=== PATIENT | male | born 1960 | race Caucasian/White ===

== ENCOUNTER 2020-01-16 17:01 | Inpatient (IN) | payer OTHER, SELFPAY ==
[2020-01-16] VITALS (15 sets, daily range): BP systolic 121–157; BP diastolic 77–96; PULSE 79–111; RESP 18–29; TEMP 36.2–36.6; O2SAT 61–97; BMI 53.7
--- NOTE | ~2020-01-16 | US_ITS ---
EXAMINATION: US venous doppler LE EXAM DATE: 01/17/2020 08:30 INDICATION: Bilateral leg edema. TECHNIQUE: Multiple grayscale, color flow and Doppler images of the lower extremity deep venous syste ms bilaterally were obtained and reviewed. There is no prior study for comparison. FINDINGS: Right side: The right common femoral, femoral and profunda veins demonstrate normal color flow, respi ratory variation, augmentation and compressibility. Compressibility, color flow confirmed within the right popliteal, posterior tibial, peroneal, and greater saphenous veins. Left side: The left common femoral, femoral and profunda veins demonstrate normal color flow, respira tory variation, augmentation and compressibility. Compressibility, color flow confirmed within the l eft popliteal, posterior tibial, peroneal, and greater saphenous veins. IMPRESSION: No lower extremity deep venous thrombosis bilaterally. Reviewed, dictated and finalized at location A. TRIC DISTRIBUTION CHECKER
--- NOTE | ~2020-01-16 | XR_ITS ---
EXAMINATION: XR chest 2V DATE: 01/16/2020 17:48 INDICATION: Shortness of breath and right-sided weakness. TECHNIQUE: frontal and lateral views of the chest were obtained. COMPARISON: Chest radiograph dated 12/23/2013 FINDINGS: Patchy airspace opacities in the bilateral mid and lower lung zones. No pleural effusion or pneumotho rax. Cardiomegaly. Moderate thoracic spondylosis. IMPRESSION: 1. Opacities in the bilateral mid and lower lung zones which could represent pulmonary edema or pneum onia. 2. Cardiomegaly. Reviewed, dictated and finalized at location H. GER OF PRODUCT IMPRESSION: 1. Opacities in the bilateral mid and lower lung zones which could represent pu lmonary edema or pneumonia. 2. Cardiomegaly.
--- NOTE | 2020-01-16 17:24 | PC.NURSE ---
EKG done at 1721, shown to JEN
[2020-01-16 17:37] LABS: Hematocrit 45.6 % (42.0-52.0); Hemoglobin 15.5 g/dL (14.0-18.0); Mean Corpuscular Hemoglobin 30.6 pg (26-34); Mean Corpuscular Volume 89.9 fl (80-100); Mean Platelet Volume 10.1 fl (7.4-10.4); Platelet Count Result 254 k/mm3 (150-375); Red Blood Count 5.07 M/mm3 (4.6-6.20); Red Cell Distribution Width 13.2 % (11.5-14.5)
[2020-01-16 17:47] LABS: Partial Thromboplastin Time 25.2 SECONDS (22.3-36.8)
[2020-01-16 17:49] LABS: Alanine Aminotransferase 44 U/L (4-50); Albumin Level 3.5 g/dL (3.5-5.1); Alkaline Phosphatase 107 U/L (38-126); Anion Gap 12 mmol/L (8-16); Aspartate Amino Transferase 67 U/L (17-59); Bilirubin,Total 0.8 mg/dL (0.2-1.3); Blood Urea Nitrogen 22 mg/dL (9-20); Calcium 8.9 mg/dL (8.4-10.2); Carbon Dioxide 33 mmol/L (22-30); Chloride 90 mmol/L (98-107); Estimated Glomerular Filt Rate > 60; Glucose 190 mg/dL (75-110); Potassium 3.9 mmol/L (3.4-5.0); Sodium 135 mmol/L (137-145)
[2020-01-16 17:57] LABS: NT Pro B Type Natriuretic Pept 2160 PG/ML (5-100)
[2020-01-16 17:58] LABS: Add Urine Microscopic? YES; Amorphous Sediment Urine Few; Appearance Urine Cloudy (Clear); Bacteria Urine Trace /hpf; Bilirubin Urine Negative (Negative); Blood Urine Negative (Negative); Color Urine Amber (Yellow); Glucose Urine UA Negative (Negative); Ketones Urine Negative (Negative); Leukocyte Esterase Ur Negative LEU/UL (Negative); Mucus Urine Few /lpf; Nitrate Urine Negative (Negative); Protein Urine 3+ mg/dL (Negative); Specific Grav Ur 1.029 (1.001-1.035); Squamous Epithelial Cell Urine Occasional /hpf (Few); WBC Urine 0-3 /hpf
[2020-01-16 18:10] LABS: Band Neutrophils Percent 5 % (0-6); Monocytes Percent Manual 6 % (3-9); Neutrophils Percent Manual 75 % (46-73); Platelet Estimate Adequate (Adequate); Total Cells Counted 100
--- NOTE | 2020-01-16 18:25 | ED.SOB ---
HPI - SOB/Dyspnea General Chief Complaint: Shortness of Breath/Dyspnea Stated Complaint: multiple complaints Time Seen by Provider: 01/16/20 17:12 History of Present Illness HPI Narrative: Patient is a 59-year-old male who presents ER with shortness of breath. Reports on 01/06/2020 he began to feel very short of breath. He cannot lay down flat without getting short of breath. He used to be able to ambulate 50 to 100 feet. Can no longer walk further than 10 feet. No runny nose/sore throat/productive cough. No fevers or chills or sweats. He reports that prior to symptoms starting in late November he began to taper himself off of his home antihypertensives and Lasix because he did not think they were working. No CP. Related Data Home Medications Medication Instructions Recorded Confirmed furosemide 01/16/20 losartan 100 mg PO DAILY 01/16/20 01/16/20 metoprolol succinate 50 mg PO DAILY 01/16/20 01/16/20 Allergies Allergy/AdvReac Type Severity Reaction Status Date / Time ciprofloxacin Allergy Mild YU/ITCHI Verified 01/16/20 17:26 NG Penicillins Allergy Mild HIVES Verified 01/16/20 17:26 Review of Systems Review of Systems: All systems reviewed & are unremarkable except as noted in HPI and below Constitutional: Constitutional: Denies chills, Denies fever(s) and Reports weakness ENT: Denies nasal congestion and Denies sore throat Cardiovascular: Cardiovascular: Denies chest pain, Denies rapid heart rate and Denies radiating jaw, neck or arm pain Respiratory: Respiratory: Denies cough, Reports dyspnea and Denies wheezing Comments: Orthopnea Integumentary/Breasts: Skin/Breast: Denies erythema and Denies rash PMF Past Medical History Medical History (Updated 01/16/20 @ 19:31 by Delgado Lawrence MD) Anxiety Aortic stenosis Atrial fibrillation Depression Diabetes type 2, controlled History of CHF (congestive heart failure) History of hypercholesterolemia Hypertension Hypothyroidism Obstructive sleep apnea Surgical History Surgical History (Updated 01/16/20 @ 19:31 by Delgado Lawrence MD) No pertinent past surgical history Social History Social History (Updated 01/16/20 @ 18:37 by Delgado Lawrence MD) Smoking status: Never smoker Substance use: never Gender identity (if verbalized by the patient): Male Exam Narrative: Exam Narrative: GENERAL: Chronically ill-appearing, morbidly obese, and in no acute distress. HEAD: Normocephalic, atraumatic. EYES: PERRL and EOMI. ENT: Mucous membranes moist. CHEST: Fine basilar rales. No respiratory distress. HEART: Tachycardic and regular. Normal peripheral pulses. ABDOMEN: Soft, nontender, nondistended. EXTREMITIES: Normal range of motion. Nonpitting lower extremity edema. SKIN: Warm, dry, no rash. NEURO: No upper or lower extremity drift. Cranial nerves II through XII intact. No slurred speech. Alert and oriented x3. Course Course Emergency Course: Admit to the hospitalist service for diuresis. Patient requiring 5 L of oxygen as opposed to his baseline of room air. Vital Signs Vital signs: Vital Signs Temperature 97.6 F 01/16/20 17:21 Pulse Rate 109 H 01/16/20 17:21 Respiratory Rate 26 H 01/16/20 17:21 Blood Pressure 156/92 H 01/16/20 17:21 Pulse Oximetry 61 L 01/16/20 17:21 Temperature 97.6 F 01/16/20 17:21 Pulse Rate 111 H 01/16/20 19:02 Respiratory Rate 23 H 01/16/20 19:02 Blood Pressure 137/92 H 01/16/20 19:02 Pulse Oximetry 93 01/16/20 19:02 MDM - SOB/Dyspnea Lab Data Result diagrams: 01/16/20 17:30 01/16/20 17:30 Labs: Lab Results 01/16/20 01/16/20 01/16/20 Range/Units 17:30 17:30 17:30 WBC 10.0 (4.5-10.0) K/mm3 RBC 5.07 (4.6-6.20) M/mm3 Hgb 15.5 (14.0-18.0) g/dL Hct 45.6 (42.0-52.0) % MCV 89.9 (80-100) fl MCH 30.6 (26-34) pg MCHC 34.0 (32-36) g/dl RDW 13.2 (11.5-14.5) % Plt Count 254 (150-375) k/mm
--- NOTE | 2020-01-16 18:29 | ECG_ITS ---
Measurements Intervals Busy Rate: 107 P: [place]: 0 QRS: 24 QRSD: 73 T: -48 QT: 325 QTc: 435 Interpretive Statements ATRIAL FLUTTER/TACHYCARDIA WITH RAPID VENTRICULAR RESPONSE DELAYED PRECORDIAL R/S TRANSITION LOW QRS VOLTAGE IN PRECORDIAL LEADS BORDERLINE ST-T WAVE ABNORMALITY- ANTEROLAT/INF LEADS BASELINE ARTIFACT- I, II, III, AVR, AVL, AVF, V1-V3 ABNORMAL ECG Electronically Signed On 01-17-2020 8:24:20 LARRY OPERATOR by Ludwin White D.O.
[2020-01-16] MEDS: FUROSEMIDE INJ 40 MG/4 ML VIAL IV PUSH (18:56)
--- NOTE | 2020-01-16 20:53 | ADMGEN ---
This patient, Reid Sheth, was admitted to IMU Room 207-01 on 01/16/20 at 2023. Patient/family oriented to hospital policies and general routines including ID bracelet, bed and alarms, visiting hours, pain management, procedures, bathroom and other care routines, personal items, smoking policy, room service/diet, and visiting hours. Information on how to activate the Rapid Response Team has been discussed. Patient/Family are encouraged to report perceived risks to care and to ask questions if they do not understand what they are told or what they should do.
--- NOTE | 2020-01-16 22:50 | PM.IMHP ---
H&P: HPI History of Present Illness Date/Time: 01/16/20 22:50 Chief complaint: chf exacerbation Narrative: Reid Sheth is a 59 year old male who has a history of congestive heart failure. Sounds like the patient may be noncompliant. Since November the patient has been trying to wean his medications down. However the nurse in IMU called the verify his home medications and he has not had them refilled in months. The patient has not followed up with any marble machine operator. Was read as atrial flutter with a heart rate of 107. The patient appears lymphedema. He said he does not weigh himself. Also when I asked him about being diabetic he said he does not take any medication in easily borderline. The patient is typically short of breath with exertion. But however recently he is not able to lay flat knee can only ambulate about 10 ft before he gets short of breath. Patient stated that he has not been taking his medications like he should because they have been working for him. Chest x-ray was read as opacities in a bilateral mid and lower lung zones which could represent pulmonary edema or pneumonia. Cardiomegaly. Patient was placed on oxygen at 5 L per nasal cannula. He does have a loose nonproductive cough. The patient has a history of depression and he stated that he has a lot of stress in the home bound situation. He recently had a in the family. It also sounds like all of his brothers and sisters and his parents have in the past. Neutrophils are 75. Glucose 190. BNP 2160. Lexiscan was given 1 time. In the emergency room. Patient was placed in a observation status. Date of service 01/16/20 Review of Systems Review of Systems: All systems reviewed & are unremarkable except as noted in HPI and below Constitutional: Constitutional: Reports as per HPI and Reports no additional constitutional complaints Eyes: Eyes: Reports as per HPI and Reports no additional eye complaints ENT: Reports system reviewed and no additional complaints, except as documented and Reports Normal hearing present Cardiovascular: Cardiovascular: Reports no additional cardiovascular complaints Respiratory: Respiratory: Reports no additional respiratory complaints and Reports no additional respiratory complaints Gastrointestinal: Gastrointestinal: Reports as per HPI and Reports no additional gastrointestinal complaints Musculoskeletal: Musculoskeletal: Reports no additional musculoskeletal complaints Integumentary/Breasts: Skin/Breast: Reports system reviewed and no additional complaints, except as docu and Reports as per HPI Neurologic: Reports system reviewed and no additional complaints, except as documented, Reports as per HPI and Reports Normal hearing present Psychiatric: Psychiatric: Reports no additional psychiatric complaints and Reports as per HPI Endocrine: Endocrine: Reports no additional endocrine complaints Hematologic/Lymphatic: Hematologic/Lymphatic: Reports no additional hematologic/lymphatic complaints Allergic/Immunologic: Allergic/Immunologic: Reports no additional allergic/immunologic complaints [facility] Past Medical History Medical History (Updated 01/16/20 @ 23:11 by Corrine Melissa NP) Anxiety Aortic stenosis Atrial fibrillation Depression Diabetes type 2, controlled DM2 (diabetes mellitus, type 2) The patient stated he is just borderline. History of CHF (congestive heart failure) History of hypercholesterolemia Hypertension Hypothyroidism The patient stated he used to have a problem but no longer takes thyroid medicine. Obstructive sleep apnea He does not use a CPAP Surgical History Surgical History (Updated 01/16/20 @ 23:16 by Corrine Melissa NP) History of placement of ear tubes Hx of mastoidectomy left Family History Family History Mother Congestive heart failure Diabetes mellitus Father Congestive heart failure Sibling Lung c
[2020-01-16 23:01] LABS: Hemoglobin A1C 6.1 % (<5.7)
[2020-01-17] VITALS (12 sets, daily range): BP systolic 100–139; BP diastolic 53–81; PULSE 59–112; RESP 16–26; TEMP 35.8–36.4; O2SAT 91–100
[2020-01-17 04:34] LABS: Basophils Absolute Auto 0.1 K/mm3 (0.0-0.1); Basophils Percent Auto 0.6 % (0.2-1.2); Eosinophils Absolute Auto 0.2 K/mm3 (0-0.3); Eosinophils Percent Auto 2.5 % (0-4.4); Hematocrit 41.6 % (42.0-52.0); Hemoglobin 13.9 g/dL (14.0-18.0); Immature Granulocyte Absolute 0.16 K/mm3 (0.00-0.031); Lymphocytes Absolute Auto 1.41 K/mm3 (0.9-3.2); Lymphocytes Percent Auto 17.5 % (18.3-44.2); Mean Corpuscular HGB Conc 33.4 g/dl (32-36); Mean Corpuscular Hemoglobin 30.1 pg (26-34); Mean Platelet Volume 10.5 fl (7.4-10.4); Monocytes Absolute Auto 0.7 K/mm3 (0.1-0.6); Monocytes Percent Auto 8.7 % (2.6-8.5); Neutrophils Absolute Auto 5.5 K/mm3 (1.3-6.7); Neutrophils Percent Auto 68.7 % (45.5-73.1); Nucleated Red Blood Cells Perc 0.4 % (0.0-0.2); Platelet Count Result 207 k/mm3 (150-375); Red Blood Count 4.62 M/mm3 (4.6-6.20); Red Cell Distribution Width 13.3 % (11.5-14.5); White Blood Count 8.1 K/mm3 (4.5-10.0)
[2020-01-17 04:44] LABS: Magnesium 2.2 mg/dL (1.6-2.3)
[2020-01-17 04:46] LABS: Lactic Acid Reflex 1.2 mmol/L (0.7-2.1)
[2020-01-17 04:47] LABS: Alanine Aminotransferase 41 U/L (4-50); Alkaline Phosphatase 96 U/L (38-126); Anion Gap 4 mmol/L (8-16); Aspartate Amino Transferase 48 U/L (17-59); Bilirubin,Total 0.6 mg/dL (0.2-1.3); Blood Urea Nitrogen 22 mg/dL (9-20); CRP 3.8 mg/dL (<1.0); Calcium 8.4 mg/dL (8.4-10.2); Carbon Dioxide 37 mmol/L (22-30); Chloride 94 mmol/L (98-107); Estimated CRCL calculation 108 ml/min; Estimated Glomerular Filt Rate > 60; Glucose 123 mg/dL (75-110); Lactate Dehydrogenase 1020 U/L (313-618); Sodium 135 mmol/L (137-145)
[2020-01-17] MEDS: FUROSEMIDE INJ 40 MG/4 ML VIAL IV PUSH ×2 (06:38→20:07)
[2020-01-17 08:08] LABS: Glucose Point of Care 133 (65-105)
[2020-01-17] MEDS: METOPROLOL SUCCINATE EXT REL 50 MG TABCR PO (08:43)
[2020-01-17] MEDS: VITAMIN E 400 UNIT CAPSULE PO (08:43)
[2020-01-17] MEDS: ENOXAPARIN 40 MG/0.4 ML SYRINGE SUB-Q (08:43)
[2020-01-17] MEDS: LOSARTAN POTASSIUM 100 MG TABLET PO (08:43)
[2020-01-17] MEDS: HYDROcodone/acetaminophen (*CRX) 5-325 MG TABLET 1 TAB PO ×2 (08:47→16:50)
[2020-01-17] MEDS: ASPIRIN 81 MG CHEWABLE TABLET PO (08:47)
--- NOTE | 2020-01-17 11:17 | PM.CNCAR ---
Assessment and Plan Additional Plan This is a 59-year-old gentleman presenting with shortness of breath and symptoms of biventricular congestive heart failure. He has several obvious reasons for this including his aortic valve disease, atrial flutter of unknown chronicity and aortic valve disease with a bicuspid aortic valve and some degree of aortic stenosis. Unfortunately he has been noncompliant with medication and this some certainly also plays a role in terms of the etiology of this. Lastly he clearly has sleep apnea he has been tested for this states that he has the diagnosis but has elected not to treated because he is fearful of a CPAP mask. His metoprolol has already been resume which is appropriate. He is on loop diuretics which also was appropriate. I am going to systemically anticoagulate him with full-dose Xarelto at this time. Echocardiogram will be obtained tomorrow morning. We will follow him with you during this hospitalization and given the clinical neurological event 2 or 3 weeks ago and his atrial flutter restoring sinus rhythm during this hospitalization will not be attempted. Following discharge he will follow up with his established brine tank operator at [facility]. Mayito Bonner MD [facility] History of Present Illness History of Present Illness Consult date/time: 01/17/20 11:17 Consult reason: congestive heart failure Reason For Visit: chf exacerbation Narrative: This is a 59-year-old patient with whom I have not had any previous encounters I am seeing him at the request of the hospitalist today for assistance with the evaluation and management of atrial flutter as well as congestive heart failure. The patient is in room 207 and is not in any current distress but has the head of the bed elevated at about 45?. He states that he has been noticing increasing problems with shortness of breath for the last week or 2 at least. He has had difficulty with shortness of breath when he tries to lie down in this flat supine position for sleeping for the last several days and as such she came into the emergency room last evening. The patient has physicians who are not on staff here at [facility] he says he has a brine tank operator and PCP at [facility] in [place]. He says that he sees a brine tank operator because he is known to have a bicuspid aortic valve and there following it regularly in his office with appointments and occasional echocardiograms. He can't remember when his last echocardiogram was he was supposed to have 1 this year but because of the pandemic It was not performed. The patient is morbidly obese and also has a diagnosis of obstructive sleep apnea which he is not being treated because the patient says that CPAP which several doctors have recommended is frightening to him. He also has essential hypertension. The patient had been on a medical regimen which consisted of aspirin, furosemide, hydrochlorothiazide, losartan and metoprolol. For reasons that are not sensible or appropriate he decided to wean himself off of all of his medications recently within the last month or so. He states to me that he thought it was not good to be taking blood pressure medicine for a long period of time. He did not discuss this decision with any of his physicians. The patient's electrocardiogram in the hospital and his telemetry shows him to be in atrial flutter his average heart rate is between 90 in the low 100s. He does not remember ever being told of any arrhythmia in the past. He not having any chest pain pressure or heaviness in this setting I am seeing him in consultation. He also very interestingly thinks that about 2 weeks ago he had a stroke. He lives alone in his own home and states that he felt very poorly suddenly 1 morning and had difficulty with motor control of his right arm. He states that he felt confused but he was able to speak as far as he can remember he did not have any leg weakness or visual changes. He did not seek
[2020-01-17 12:14] LABS: Glucose Point of Care 198 (65-105)
--- NOTE | 2020-01-17 15:34 | PM.IMPN ---
Progress Note: A&P Assessment and Plan (1) History of CHF (congestive heart failure): Code(s): Z86.79 - Personal history of other diseases of the circulatory system Status: Chronic Assessment and Plan: The patient stated that he has been weaning himself off of his medications at home because he feels like they are not helping him. Patient also speaks in a very monotone voice and appears to be depressed. Will continue with IV Lasix. Hold his hydrochlorothiazide. Continue with metoprolol. And I ordered an echo. We should also consult cardiology as well. The patient has seen Dr. kaplan in the past and did a ADI. Many years ago. 01/17/20 15:34 Patient is 59-year-old male with history of congestive heart failure SVT with atrial flutter morbid obesity with sleep apnea unfortunately patient has been noncompliant with his medical treatment as well as follow-up with his repairer maintenance building and primary care, patient presented to emergency department with shortness of breath swelling of lower extremities , patient is seen by repairer maintenance building and agrees with a continuation of loop diuretics as well as metoprolol, to further evaluate patient will have cardiac echo, patient is fully anticoagulated, and currently she is not a candidate for cardioversion with recent neurological event, patient also has sleep apnea but does not want wear CPAP, which will definitely help with his oxygenation. Currently patient states is feeling much better compared to when he arrived not as short of breath, will have a PT OT evaluate the patient and further recommendation to follow (2) Atrial flutter: Code(s): I48.92 - Unspecified atrial flutter Status: Acute Assessment and Plan: Patient is on metoprolol. Again cardiology input greatly be appreciated. The patient is not compliant with his medications and does not take them as directed. (3) History of hypercholesterolemia: Code(s): Z86.39 - Personal history of other endocrine, nutritional and metabolic disease Status: Chronic Assessment and Plan: Patient does not appear to be on anything for his cholesterol. We need to check a lipid profile (4) Hypertension: Code(s): I10 - Essential (primary) hypertension Status: Chronic Assessment and Plan: Patient is on metoprolol on Lasix. (5) Hypothyroidism: Code(s): E03.9 - Hypothyroidism, unspecified Status: Chronic Assessment and Plan: Patient stated he had a problem with his thyroid many years ago but is no longer on medication. (6) Non-compliant behavior: Code(s): R46.89 - Other symptoms and signs involving appearance and behavior Status: Acute Assessment and Plan: The patient has the history of obesity with obstructive sleep apnea and does not use a CPAP machine. (7) DM2 (diabetes mellitus, type 2): Code(s): E11.9 - Type 2 diabetes mellitus without complications Status: Acute Assessment and Plan: Patient tells me that he has borderline and does not take any medication however his blood sugars elevated tonight. Will do Accu-Cheks AC and HS and check A1c. (8) Depression: Code(s): F32.9 - Major depressive disorder, single episode, unspecified Status: Chronic Assessment and Plan: Patient denies being depressed and is Hyman suicide Scale was low. However the patient has a flat affect and appears to be depressed. Subjective Date/time seen: 01/17/20 15:34 Patient is 59-year-old male with history of congestive heart failure SVT with atrial flutter morbid obesity with sleep apnea unfortunately patient has been noncompliant with his medical treatment as well as follow-up with his repairer maintenance building and primary care, patient presented to emergency department with shortness of breath swelling of lower extremities , patient is seen by repairer maintenance building and agrees with a continuation of loop diuretics as well as metoprolol, to further evaluate patient will
[2020-01-17 16:44] LABS: Glucose Point of Care 121 (65-105)
[2020-01-17] MEDS: RIVAROXABAN 20 MG TABLET PO (16:50)
--- NOTE | 2020-01-17 19:28 | PC.NURSE ---
This patient, Reid Sehth, was received from [IMU 207] on 01/17/20 at 1850. Patient/family oriented to unit policies and routines
[2020-01-17 20:41] LABS: Glucose Point of Care 109 (65-105)
--- NOTE | 2020-01-18 | ECHO_ITS ---
Patient Info Name: Reid Sheth Age: 59 years : 1960 Gender: Male Ht: 70 in Wt: 375 lbs BSA: 3.00 m2 HR: 72 bpm BP: 122 / 82 mmHg Heart Rhythm: Atrial Flutter Technical Quality: Good Exam Date: 01/18/2020 9:43 AM Exam Location: [facility] Patient Status: Inpatient Admit Date: 01/16/2020 Staff Ordering Physician: Mayito Bonner MD Distribution Sales Manager: Bon Steele RDCS Attending Provider: Charles Gottlieb MD Referring Physician: Mayito Adan DO; Exam Type: CA echo dop color flow w con Study Info Indications 427.32 - Atrial flutter Complete two-dimensional, color flow and Doppler transthoracic echocardiogram is performed with contrast to opacify the left ventricle and to improve the deliniation of the left ventricle endocardial borders. Contrast/Agitated Saline Contrast/Ag. Saline: Definity Amount: 3.00 ml Administered By: Nomi Jennings RN Existing IV Access: Yes History/Risk Factors Atrial flutter; CHF exacerbation; Bicuspid AV, DM2, HTN, SOB, orthopnea. Summary 1. Left ventricular chamber dimension is mildly enlarged. 2. Left ventricular systolic function is mildly reduced, estimated at 50-55%. 3. There is severely increased left ventricular wall thickness. 4. The left ventricular diastolic function is indeterminate. 5. Right ventricular chamber dimension is mildly enlarged. 6. Left atrial chamber dimension is mildly enlarged. 7. Right atrial chamber dimension is mildly enlarged. 8. There is mild aortic valve stenosis with a peak velocity of 244.86 cm/s, mean gradient of 12 mmHg, and aortic valve area of 1.64 cm2. 9. There is mild tricuspid valve regurgitation. 10. Moderate pulmonary hypertension, estimated pulmonary arterial systolic pressure is 55 mmHg. 11. There is small pericardial effusion. Left Ventricle Left ventricular chamber dimension is mildly enlarged. Left ventricular systolic function is mildly reduced, estimated at 50-55%. There is severely increased left ventricular wall thickness. The left ventricular diastolic function is indeterminate. Right Ventricle Right ventricular chamber dimension is mildly enlarged. Right ventricular systolic function is normal. Left Atria Left atrial chamber dimension is mildly enlarged. Right Atria Right atrial chamber dimension is mildly enlarged. Atrial Septum Intact interatrial septum visualized by color flow imaging. Aortic Valve The aortic valve is trileaflet. There is mild aortic valve stenosis with a peak velocity of 244.86 cm/s, mean gradient of 12 mmHg, and aortic valve area of 1.64 cm2. There is trace aortic valve regurgitation. There is mild aortic valve calcification. Pulmonic Valve The pulmonic valve is normal. There is no pulmonic valve stenosis. There is trace pulmonic regurgitation. Mitral Valve The mitral valve has normal leaflets. There is no mitral valve stenosis. There is trace mitral valve regurgitation. Tricuspid Valve The tricuspid valve leaflets are normal. There is no significant tricuspid valve stenosis. There is mild tricuspid valve regurgitation. Moderate pulmonary hypertension, estimated pulmonary arterial systolic pressure is 55 mmHg. Pericardium/Pleural The pericardium appears normal. There is small pericardial effusion. Inferior Vena Cava Dilated inferior vena cava with <50% collapse upon inspiration consistent with elevated right atrial pressure,
[2020-01-18 05:12] VITALS: BP 122/82; PULSE 67; RESP 22; TEMP 36.3; O2SAT 91
[2020-01-18] MEDS: FUROSEMIDE INJ 40 MG/4 ML VIAL IV PUSH (05:38)
[2020-01-18 06:01] LABS: Anion Gap 9 mmol/L (8-16); Blood Urea Nitrogen 25 mg/dL (9-20); Calcium 8.4 mg/dL (8.4-10.2); Carbon Dioxide 34 mmol/L (22-30); Chloride 96 mmol/L (98-107); Estimated CRCL calculation 108 ml/min; Estimated Glomerular Filt Rate > 60; Glucose 127 mg/dL (75-110); Hematocrit 42.5 % (42.0-52.0); Hemoglobin 14.2 g/dL (14.0-18.0); Mean Corpuscular HGB Conc 33.4 g/dl (32-36); Mean Corpuscular Hemoglobin 30.7 pg (26-34); Mean Platelet Volume 10.4 fl (7.4-10.4); Platelet Count Result 260 k/mm3 (150-375); Potassium 3.7 mmol/L (3.4-5.0); Red Blood Count 4.62 M/mm3 (4.6-6.20); Red Cell Distribution Width 13.7 % (11.5-14.5); Sodium 139 mmol/L (137-145); White Blood Count 9.5 K/mm3 (4.5-10.0)
[2020-01-18 07:57] LABS: Glucose Point of Care 115 (65-105)
[2020-01-18 08:30] VITALS: O2SAT 92
[2020-01-18 08:43] VITALS: PULSE 81
[2020-01-18] MEDS: POTASSIUM CHLORIDE 20 MEQ TABLET 40 MEQ PO (08:43)
[2020-01-18] MEDS: LOSARTAN POTASSIUM 100 MG TABLET PO (08:43)
[2020-01-18] MEDS: METOPROLOL SUCCINATE EXT REL 50 MG TABCR PO (08:43)
[2020-01-18] MEDS: VITAMIN E 400 UNIT CAPSULE PO (08:43)
[2020-01-18] MEDS: ASPIRIN 81 MG CHEWABLE TABLET PO (10:14)
[2020-01-18] MEDS: PERFLUTREN LIPID MICROSPHERES 1.5 ML VIAL DILUTED TO 10 ML TOTAL VOLUME (10:15)
[2020-01-18 12:04] LABS: Glucose Point of Care 115 (65-105)
[2020-01-18 12:16] VITALS: BMI 53.7
--- NOTE | 2020-01-18 13:08 | PM.PNCARD ---
Progress Note: A&P Assessment and Plan (1) Acute exacerbation of CHF (congestive heart failure): Code(s): I50.9 - Heart failure, unspecified Status: Acute Assessment and Plan: echo pending. Will reduce his furosemide once daily IV (2) Hypertension: Code(s): I10 - Essential (primary) hypertension Status: Chronic Assessment and Plan: BP is controlled (3) Atrial flutter: Code(s): I48.92 - Unspecified atrial flutter Status: Acute Assessment and Plan: continue anticoagulation (4) DM2 (diabetes mellitus, type 2): Code(s): E11.9 - Type 2 diabetes mellitus without complications Status: Acute (5) KEIRA (obstructive sleep apnea): Code(s): G47.33 - Obstructive sleep apnea (adult) (pediatric) Status: Acute Assessment and Plan: needs to be treated as an outpatient Subjective Date/time seen: 01/18/20 13:08 Interval history: 59-year-old admitted with lethargy, shortness of breath Date of service 2019: He feels tired and weak. No chest pain. No shortness of breath. Review of Systems Constitutional: Constitutional: Reports fatigue and Reports lethargy Eyes: Eyes: Reports no additional eye complaints ENT: Reports system reviewed and no additional complaints, except as documented Cardiovascular: Cardiovascular: Reports as per HPI and Reports dyspnea Respiratory: Respiratory: Reports dyspnea Gastrointestinal: Gastrointestinal: Reports no additional gastrointestinal complaints Musculoskeletal: Musculoskeletal: Reports no additional musculoskeletal complaints Integumentary/Breasts: Skin/Breast: Reports system reviewed and no additional complaints, except as docu Neurologic: Reports system reviewed and no additional complaints, except as documented Psychiatric: Psychiatric: Reports no additional psychiatric complaints Endocrine: Endocrine: Reports no additional endocrine complaints and Reports fatigue Hematologic/Lymphatic: Hematologic/Lymphatic: Reports no additional hematologic/lymphatic complaints Allergic/Immunologic: Allergic/Immunologic: Reports no additional allergic/immunologic complaints Exam Const: Other: Morbidly obese white male sitting in bed watching television does not appear to be in any distress. Answers questions appropriately but somewhat slowly HENMT: Mouth: Yes moist mucous membranes Eyes: Sclera: sclerae normal Pupils: Equal, round and reactive pupils present Neck: Neck: no JVD Thyroid: thyroid normal Other: No obvious carotid bruits. Very difficult to assess JVD given his body habitus Resp: Effort & Inspection: normal respiratory effort Other: Patient has pulmonary crackles at the bases bilaterally Cardio: Rhythm: abnormal rhythm irregularly irregular Other: Patient has a grade 2/6 systolic crescendo decrescendo murmur audible at the base that does not appear to radiate no diastolic murmur GI: Auscultation: normal bowel sounds Other: Morbidly obese but negative Skin: General skin exam: normal color Neuro: Cranial nerves: Yes Equal, round and reactive pupils present Cognition (Neuro): normal cognition Extrem: Other: Chronic venous insufficiency edema lower extremities are however soft not not tense or weeping Objective Data Vital Signs Vital Signs: Vital Signs - 24 hr 01/17/20 14:00 01/17/20 16:00 01/17/20 19:59 Temperature 35.8 C L 36.1 C L Pulse Rate 59 L 79 81 Respiratory Rate 20 16 Blood Pressure 129/78 115/76 Pulse Oximetry 91 94 01/17/20 20:00 01/18/20 05:12 01/18/20 08:30 Temperature 36.3 C L Pulse Rate 67 Respiratory Rate 22 H Blood Pressure 122/82 Pulse Oximetry 94 91 92 01/18/20 08:43 Temperature Pulse Rate 81 Respiratory Rate Blood Pressure Pulse Oximetry Intake/Output Intake/Output: Intake & Output 01/15/20 01/16/20 01/17/20 01/18/20 23:59 23:59 23:59 23:59 Intake Total 680 340 Output Total 7366 230 2457 Balance
[2020-01-18] MEDS: HYDROcodone/acetaminophen (*CRX) 5-325 MG TABLET 1 TAB PO (13:55)
[2020-01-18 15:01] VITALS: BP 133/75; PULSE 76; RESP 18; TEMP 35.6; O2SAT 95
--- NOTE | 2020-01-18 15:43 | PM.IMPN ---
Progress Note: A&P Assessment and Plan (1) History of CHF (congestive heart failure): Code(s): Z86.79 - Personal history of other diseases of the circulatory system Status: Chronic Assessment and Plan: The patient stated that he has been weaning himself off of his medications at home because he feels like they are not helping him. Patient also speaks in a very monotone voice and appears to be depressed. Will continue with IV Lasix. Hold his hydrochlorothiazide. Continue with metoprolol. And I ordered an echo. We should also consult cardiology as well. The patient has seen Dr. kaplan in the past and did a ADI. Many years ago. 01/18/20 15:43 Patient is 59-year-old male with history of congestive heart failure SVT with atrial flutter morbid obesity with sleep apnea unfortunately patient has been noncompliant with his medical treatment as well as follow-up with his body man and primary care, patient presented to emergency department with shortness of breath swelling of lower extremities , patient was seen by body man and agreed with a continuation of loop diuretics as well as metoprolol, to further evaluate patient had cardiac echo, showed mild systolic dysfunction with ejection fraction 55%, patient is fully anticoagulated, and currently he is not a candidate for cardioversion with recent neurological event, patient also has sleep apnea but does not want to wear CPAP, which will definitely help with his oxygenation. Patient is a poor historian Currently patient states is feeling little better compared to when he arrived not as short of breath, will have a PT OT evaluate the patient and further recommendation to follow, patient was seen by body man today and reduce Lasix to once a day, and continue to monitor the patient and further recommendation to follow. (2) Atrial flutter: Code(s): I48.92 - Unspecified atrial flutter Status: Acute Assessment and Plan: Patient is on metoprolol. Again cardiology input greatly be appreciated. The patient is not compliant with his medications and does not take them as directed. (3) History of hypercholesterolemia: Code(s): Z86.39 - Personal history of other endocrine, nutritional and metabolic disease Status: Chronic Assessment and Plan: Patient does not appear to be on anything for his cholesterol. We need to check a lipid profile (4) Hypertension: Code(s): I10 - Essential (primary) hypertension Status: Chronic Assessment and Plan: Patient is on metoprolol on Lasix. (5) Hypothyroidism: Code(s): E03.9 - Hypothyroidism, unspecified Status: Chronic Assessment and Plan: Patient stated he had a problem with his thyroid many years ago but is no longer on medication. (6) Non-compliant behavior: Code(s): R46.89 - Other symptoms and signs involving appearance and behavior Status: Acute Assessment and Plan: The patient has the history of obesity with obstructive sleep apnea and does not use a CPAP machine. (7) DM2 (diabetes mellitus, type 2): Code(s): E11.9 - Type 2 diabetes mellitus without complications Status: Acute Assessment and Plan: Patient tells me that he has borderline and does not take any medication however his blood sugars elevated tonight. Will do Accu-Cheks AC and HS and check A1c. (8) Depression: Code(s): F32.9 - Major depressive disorder, single episode, unspecified Status: Chronic Assessment and Plan: Patient denies being depressed and is Hyman suicide Scale was low. However the patient has a flat affect and appears to be depressed. Subjective Date/time seen: 01/18/20 15:43 Patient is 59-year-old male with history of congestive heart failure SVT with atrial flutter morbid obesity with sleep apnea unfortunately patient has been noncompliant with his medical treatment as well as follow-up with his body man and primary care, p
[2020-01-18 16:30] LABS: Glucose Point of Care 117 (65-105)
[2020-01-18] MEDS: RIVAROXABAN 20 MG TABLET PO (16:41)
[2020-01-18 19:43] VITALS: BP 117/64; PULSE 67; RESP 16; TEMP 36.1; O2SAT 97
[2020-01-18 23:18] LABS: Glucose Point of Care 118 (65-105)
[2020-01-19 04:22] VITALS: BP 136/71; PULSE 87; RESP 20; TEMP 36.4; O2SAT 94
[2020-01-19 06:12] LABS: Hematocrit 41.2 % (42.0-52.0); Hemoglobin 13.5 g/dL (14.0-18.0); Mean Corpuscular HGB Conc 32.8 g/dl (32-36); Mean Corpuscular Hemoglobin 30.7 pg (26-34); Mean Corpuscular Volume 93.6 fl (80-100); Mean Platelet Volume 10.2 fl (7.4-10.4); Platelet Count Result 268 k/mm3 (150-375); Red Cell Distribution Width 13.8 % (11.5-14.5); White Blood Count 8.2 K/mm3 (4.5-10.0)
[2020-01-19 06:24] LABS: Anion Gap 5 mmol/L (8-16); Blood Urea Nitrogen 26 mg/dL (9-20); Calcium 8.5 mg/dL (8.4-10.2); Carbon Dioxide 36 mmol/L (22-30); Chloride 95 mmol/L (98-107); Estimated CRCL calculation 99 ml/min; Estimated Glomerular Filt Rate > 60; Glucose 115 mg/dL (75-110); Potassium 4.3 mmol/L (3.4-5.0); Sodium 136 mmol/L (137-145)
[2020-01-19 07:38] LABS: Glucose Point of Care 120 (65-105)
[2020-01-19 09:04] VITALS: PULSE 77
[2020-01-19] MEDS: FUROSEMIDE INJ 40 MG/4 ML VIAL IV PUSH (09:04)
[2020-01-19] MEDS: METOPROLOL SUCCINATE EXT REL 50 MG TABCR PO (09:04)
[2020-01-19] MEDS: VITAMIN E 400 UNIT CAPSULE PO (09:04)
[2020-01-19] MEDS: LOSARTAN POTASSIUM 100 MG TABLET PO (09:04)
[2020-01-19] MEDS: ASPIRIN 81 MG CHEWABLE TABLET PO (09:04)
[2020-01-19 09:05] VITALS: O2SAT 91
--- NOTE | 2020-01-19 10:25 | PM.PNCARD ---
Progress Note: A&P Assessment and Plan (1) Acute exacerbation of CHF (congestive heart failure): Code(s): I50.9 - Heart failure, unspecified Status: Acute Assessment and Plan: 1. Left ventricular chamber dimension is mildly enlarged. 2. Left ventricular systolic function is mildly reduced, estimated at 50-55%. 3. There is severely increased left ventricular wall thickness. 4. The left ventricular diastolic function is indeterminate. 5. Right ventricular chamber dimension is mildly enlarged. 6. Left atrial chamber dimension is mildly enlarged. 7. Right atrial chamber dimension is mildly enlarged. 8. There is mild aortic valve stenosis with a peak velocity of 244.86 cm/s, mean gradient of 12 mmHg, and aortic valve area of 1.64 cm2. 9. There is mild tricuspid valve regurgitation. 10. Moderate pulmonary hypertension, estimated pulmonary arterial systolic pressure is 55 mmHg. 11. There is small pericardial effusion. CHF is mostly right-sided in etiology and related to sleep apnea /pulmonary hypertension. Will DC his IV Lasix. I will start him back on furosemide 20 mg daily. Continue metoprolol and losartan (2) Hypertension: Code(s): I10 - Essential (primary) hypertension Status: Chronic Assessment and Plan: BP is controlled (3) Atrial flutter: Code(s): I48.92 - Unspecified atrial flutter Status: Acute Assessment and Plan: continue anticoagulation (4) DM2 (diabetes mellitus, type 2): Code(s): E11.9 - Type 2 diabetes mellitus without complications Status: Acute (5) KEIRA (obstructive sleep apnea): Code(s): G47.33 - Obstructive sleep apnea (adult) (pediatric) Status: Acute Assessment and Plan: needs to be treated as an outpatient Follow-up with his primary online advertising director at [facility]. DC planning Subjective Date/time seen: 01/19/20 10:25 Interval history: 59-year-old admitted with lethargy, shortness of breath Date of service 2019: He feels off . No chest pain. No shortness of breath. Review of Systems Constitutional: Constitutional: Reports fatigue and Reports lethargy Eyes: Eyes: Reports no additional eye complaints ENT: Reports system reviewed and no additional complaints, except as documented Cardiovascular: Cardiovascular: Reports as per HPI and Reports dyspnea Respiratory: Respiratory: Reports dyspnea Gastrointestinal: Gastrointestinal: Reports no additional gastrointestinal complaints Musculoskeletal: Musculoskeletal: Reports no additional musculoskeletal complaints Integumentary/Breasts: Skin/Breast: Reports system reviewed and no additional complaints, except as docu Neurologic: Reports system reviewed and no additional complaints, except as documented Psychiatric: Psychiatric: Reports no additional psychiatric complaints Endocrine: Endocrine: Reports no additional endocrine complaints and Reports fatigue Hematologic/Lymphatic: Hematologic/Lymphatic: Reports no additional hematologic/lymphatic complaints Allergic/Immunologic: Allergic/Immunologic: Reports no additional allergic/immunologic complaints Exam Const: Other: Morbidly obese white male sitting in bed watching television does not appear to be in any distress. Answers questions appropriately but somewhat slowly HENMT: Mouth: Yes moist mucous membranes Eyes: Sclera: sclerae normal Pupils: Equal, round and reactive pupils present Neck: Neck: no JVD Thyroid: thyroid normal Other: No obvious carotid bruits. Very difficult to assess JVD given his body habitus Resp: Effort & Inspection: normal respiratory effort Other: Patient has pulmonary crackles at the bases bilaterally Cardio: Rhythm: abnormal rhythm irregularly irregular Other: Patient has a grade 2/6 systolic crescendo decrescendo murmur audible at the base that does not appear to radiate no diastolic murmur GI: Auscultation: normal bowel sounds Other:
[2020-01-19 11:42] LABS: Glucose Point of Care 122 (65-105)
[2020-01-19 14:15] VITALS: BP 94/60; PULSE 60; RESP 16; TEMP 36.1; O2SAT 94
[2020-01-19 15:39] VITALS: BP 128/76
--- NOTE | 2020-01-19 16:12 | PM.IMPN ---
Progress Note: A&P Assessment and Plan (1) History of CHF (congestive heart failure): Code(s): Z86.79 - Personal history of other diseases of the circulatory system Status: Chronic Assessment and Plan: The patient stated that he has been weaning himself off of his medications at home because he feels like they are not helping him. Patient also speaks in a very monotone voice and appears to be depressed. Will continue with IV Lasix. Hold his hydrochlorothiazide. Continue with metoprolol. And I ordered an echo. We should also consult cardiology as well. The patient has seen Dr. kaplan in the past and did a ADI. Many years ago. 01/19/20 16:12 Patient is 59-year-old male with history of congestive heart failure SVT with atrial flutter morbid obesity with sleep apnea unfortunately patient has been noncompliant with his medical treatment as well as follow-up with his steward/stewardess club car and primary care, patient presented to emergency department with shortness of breath swelling of lower extremities , patient was seen by steward/stewardess club car and agreed with a continuation of loop diuretics as well as metoprolol, to further evaluate patient had cardiac echo, showed mild systolic dysfunction with ejection fraction 55%, patient is fully anticoagulated, and currently he is not a candidate for cardioversion with recent neurological event, patient again seen by steward/stewardess club car today after reviewing his echo suspected patient congestive heart failure stemming from right heart failure due to his severe sleep apnea, stop the IV Lasix and started the patient on low-dose p.o. Lasix, patient also has sleep apnea but does not want to wear CPAP, which will definitely help with his oxygenation. However patient is requiring oxygen, does not want to go home with oxygen, Patient is a poor historian Currently patient states is feeling little better compared to when he arrived not as short of breath, will have a PT OT evaluate the patient and further recommendation to follow, will continue present management for 1 more day reassess tomorrow and do the discharge planning. (2) Atrial flutter: Code(s): I48.92 - Unspecified atrial flutter Status: Acute Assessment and Plan: Patient is on metoprolol. Again cardiology input greatly be appreciated. The patient is not compliant with his medications and does not take them as directed. (3) History of hypercholesterolemia: Code(s): Z86.39 - Personal history of other endocrine, nutritional and metabolic disease Status: Chronic Assessment and Plan: Patient does not appear to be on anything for his cholesterol. We need to check a lipid profile (4) Hypertension: Code(s): I10 - Essential (primary) hypertension Status: Chronic Assessment and Plan: Patient is on metoprolol on Lasix. (5) Hypothyroidism: Code(s): E03.9 - Hypothyroidism, unspecified Status: Chronic Assessment and Plan: Patient stated he had a problem with his thyroid many years ago but is no longer on medication. (6) Non-compliant behavior: Code(s): R46.89 - Other symptoms and signs involving appearance and behavior Status: Acute Assessment and Plan: The patient has the history of obesity with obstructive sleep apnea and does not use a CPAP machine. (7) DM2 (diabetes mellitus, type 2): Code(s): E11.9 - Type 2 diabetes mellitus without complications Status: Acute Assessment and Plan: Patient tells me that he has borderline and does not take any medication however his blood sugars elevated tonight. Will do Accu-Cheks AC and HS and check A1c. (8) Depression: Code(s): F32.9 - Major depressive disorder, single episode, unspecified Status: Chronic Assessment and Plan: Patient denies being depressed and is Hyman suicide Scale was low. However the patient has a flat affect and appears to be depressed. Subjective Date/time seen:
[2020-01-19] MEDS: RIVAROXABAN 20 MG TABLET PO (16:41)
[2020-01-19 16:46] LABS: Glucose Point of Care 108 (65-105)
[2020-01-19] MEDS: polyethylene glycoL 3350 17 GM POWD.PACK PO (17:32)
[2020-01-19 20:44] LABS: Glucose Point of Care 125 (65-105)
[2020-01-19 21:03] VITALS: BP 119/78; PULSE 73; RESP 16; TEMP 36.1; O2SAT 97
[2020-01-20] VITALS (9 sets, daily range): BP systolic 108; BP diastolic 59; PULSE 72–109; RESP 18; TEMP 35.8; O2SAT 86–93
[2020-01-20 06:15] LABS: Hematocrit 39.8 % (42.0-52.0); Hemoglobin 13.1 g/dL (14.0-18.0); Mean Corpuscular HGB Conc 32.9 g/dl (32-36); Mean Corpuscular Hemoglobin 30.8 pg (26-34); Mean Corpuscular Volume 93.6 fl (80-100); Mean Platelet Volume 10.1 fl (7.4-10.4); Platelet Count Result 238 k/mm3 (150-375); Red Blood Count 4.25 M/mm3 (4.6-6.20); Red Cell Distribution Width 13.7 % (11.5-14.5); White Blood Count 7.6 K/mm3 (4.5-10.0)
[2020-01-20 06:27] LABS: Anion Gap 5 mmol/L (8-16); Blood Urea Nitrogen 27 mg/dL (9-20); Calcium 8.5 mg/dL (8.4-10.2); Carbon Dioxide 37 mmol/L (22-30); Chloride 96 mmol/L (98-107); Estimated CRCL calculation 99 ml/min; Estimated Glomerular Filt Rate > 60; Glucose 110 mg/dL (75-110); Potassium 4.4 mmol/L (3.4-5.0); Sodium 138 mmol/L (137-145)
[2020-01-20 08:03] LABS: Glucose Point of Care 100 (65-105)
[2020-01-20] MEDS: METOPROLOL SUCCINATE EXT REL 50 MG TABCR PO (08:26)
[2020-01-20] MEDS: LOSARTAN POTASSIUM 100 MG TABLET PO (08:27)
[2020-01-20] MEDS: FUROSEMIDE 20 MG TABLET PO (08:27)
[2020-01-20] MEDS: ASPIRIN 81 MG CHEWABLE TABLET PO (08:27)
[2020-01-20] MEDS: VITAMIN E 400 UNIT CAPSULE PO (08:27)
--- NOTE | 2020-01-20 10:20 | PM.PNCARD ---
Progress Note: A&P Additional Plan 59-year-old man with Atrial flutter, right-sided heart failure related/cor pulmonale related to morbid obesity and sleep apnea. Patient's heart rate is well controlled with metoprolol he is systemically anticoagulated with Xarelto. Disposition at this time with Cardiology is perfectly fine. The patient seems to want to stay in the hospital because he states he is enjoying his a vacation while he is here. Apparently he lives in a home that is in a very poor state of repair and is considering different living arrangements. Mayito Bonner MD [facility] Subjective Date/time seen: Date of service: 01/20/20 10:20 Interval history: This is a 59-year-old man with: Atrial flutter of unknown chronicity this is probably driven by obesity/sleep apnea, cor pulmonale. Heart rate is well controlled with metoprolol he is systemically anticoagulated with Xarelto. Spoke to the patient today about disposition he plans to follow up with his established medical billing clerk at [facility] in [place]. Told the patient that once he has been anticoagulated for 1-2 months an attempt could be made to restore sinus rhythm electrically verses simply accepting chronic AF. Exam Const: Other: Morbidly obese white male sitting in bed watching television does not appear to be in any distress. Answers questions appropriately but somewhat slowly HENMT: Mouth: Yes moist mucous membranes Eyes: Sclera: sclerae normal Pupils: Equal, round and reactive pupils present Neck: Neck: no JVD Thyroid: thyroid normal Other: No obvious carotid bruits. Very difficult to assess JVD given his body habitus Resp: Effort & Inspection: normal respiratory effort Other: Patient has pulmonary crackles at the bases bilaterally Cardio: Rhythm: abnormal rhythm irregularly irregular Other: Patient has a grade 2/6 systolic crescendo decrescendo murmur audible at the base that does not appear to radiate no diastolic murmur GI: Auscultation: normal bowel sounds Other: Morbidly obese but negative Skin: General skin exam: normal color Neuro: Cranial nerves: Yes Equal, round and reactive pupils present Cognition (Neuro): normal cognition Extrem: Other: Chronic venous insufficiency edema lower extremities are however soft not not tense or weeping Objective Data Vital Signs Vital Signs: Vital Signs - 24 hr 01/19/20 14:15 01/19/20 15:39 01/19/20 21:03 Temperature 36.1 C L 36.1 C L Pulse Rate 60 73 Respiratory Rate 16 16 Blood Pressure 94/60 L 128/76 119/78 Pulse Oximetry 94 97 01/20/20 08:15 01/20/20 08:26 01/20/20 08:29 Temperature 35.8 C L Pulse Rate 94 87 Respiratory Rate 18 Blood Pressure 108/59 L Pulse Oximetry 93 93 Intake/Output Intake/Output: Intake & Output 01/17/20 01/18/20 01/19/20 01/20/20 23:59 23:59 23:59 23:59 Intake Total 680 1690 1490 1177 Output Total 880 1325 1025 2600 Balance -200 365 465 -2776 Meds/Results Medications: Active Medications Generic Name Dose Route Start Last Admin Trade Name Freq PRN Reason Stop Dose Admin Hydrocodone Bitart/Acetaminophen 1 tab 01/16/20 18:51 01/18/20 13:55 Hydrocodone/Acetaminophen (*Crx) 5-325 Mg Tablet PO 1 tab Q4H PRN Administration Pain Rated 4-6 Aspirin 81 mg 01/17/20 08:00 01/20/20 08:27 Aspirin 81 Mg Chewable Tablet PO 81 mg DAILY@0800 PADMINI Administration Dextrose 12.5 gm 01/16/20 22:41 Dextrose 50% 25 Gm/50 Ml Syringe IV PUSH PRN PRN Hypoglycemia Protocol Furosemide 20 mg 01/20/20 09:00 01/20/20 08:27 Furosemide 20 Mg Tablet PO 20 mg DAILY PADMINI Administration Glucagon 1 mg 01/16/20 22:41 Glucagon For Inj 1 Mg Vial IM PRN PRN Hypoglycemia Protocol Glucose 15 gm 01/16/20 22:41 Glucose Oral Gel 15 Gm Of Glucse In 37.5 Gm Tube PO PRN PRN Hypoglycemia Protocol Dextrose 1,000 mls @ 100 mls/hr 01/16/20 22:41 Dextrose 5% 1,000 Ml IVPB
--- NOTE | 2020-01-20 11:33 | HOMEO2EVAL ---
Home Oxygen Evaluation RC: Home Oxygen (O2) Evaluation Start: 01/20/20 08:28 Freq: ONCE Status: Active Protocol: RPE Activity Type Activity Date Activity User E-Sign Co-Sign Detail Recorded Client Recorded Date Recorded By Document 01/20/20 11:00 [email or web address] [email or web address] 01/20/20 11:33 DJO Document 01/20/20 11:05 [email or web address] [email or web address] 01/20/20 11:33 DJO Document 01/20/20 11:10 [email or web address] [email or web address] 01/20/20 11:33 DJO Document 01/20/20 11:15 [email or web address] [email or web address] 01/20/20 11:33 DJO Document 01/20/20 11:25 [email or web address] [email or web address] 01/20/20 11:33 DJO 01/20/20 01/20/20 01/20/20 11:00 11:05 11:10 Home O2 Evaluation Test Phase Resting Resting Resting Oxygen Delivery Room Air Nasal Cannula Nasal Cannula Oxygen Flow Rate (L/min) 1 2 Pulse Oximetry (90-100 %) 86 L 88 L 90 Pulse Rate (60-100 beats/min) 88 92 97 Activity Tolerance Ambulation Distance (feet) Treatment Charges O2 Evaluation 01/20/20 01/20/20 11:15 11:25 Home O2 Evaluation Test Phase Exercise Resting Oxygen Delivery Nasal Cannula Nasal Cannula Oxygen Flow Rate (L/min) 2 2 Pulse Oximetry (90-100 %) 90 90 Pulse Rate (60-100 beats/min) 109 H 87 Activity Tolerance Poor Ambulation Distance (feet) 50 Treatment Charges
[2020-01-20 11:42] LABS: Glucose Point of Care 111 (65-105)
--- NOTE | 2020-01-20 12:27 | PM.DS ---
DS: Admitting Diagnosis Admitting Diagnosis Admitting Diagnosis: chf exacerbation DS: Discharge Diagnosis Discharge Diagnosis (1) History of CHF (congestive heart failure): Code(s): Z86.79 - Personal history of other diseases of the circulatory system Status: Chronic Assessment and Plan: The patient stated that he has been weaning himself off of his medications at home because he feels like they are not helping him. Patient also speaks in a very monotone voice and appears to be depressed. Will continue with IV Lasix. Hold his hydrochlorothiazide. Continue with metoprolol. And I ordered an echo. We should also consult cardiology as well. The patient has seen Dr. kaplan in the past and did a ADI. Many years ago. 01/19/20 16:12 Patient is 59-year-old male with history of congestive heart failure SVT with atrial flutter morbid obesity with sleep apnea unfortunately patient has been noncompliant with his medical treatment as well as follow-up with his field spec and primary care, patient presented to emergency department with shortness of breath swelling of lower extremities , patient was seen by field spec and agreed with a continuation of loop diuretics as well as metoprolol, to further evaluate patient had cardiac echo, showed mild systolic dysfunction with ejection fraction 55%, patient is fully anticoagulated, and currently he is not a candidate for cardioversion with recent neurological event, patient again seen by field spec today after reviewing his echo suspected patient congestive heart failure stemming from right heart failure due to his severe sleep apnea, stop the IV Lasix and started the patient on low-dose p.o. Lasix, patient also has sleep apnea but does not want to wear CPAP, which will definitely help with his oxygenation. However patient is requiring oxygen, does not want to go home with oxygen, Patient is a poor historian Currently patient states is feeling little better compared to when he arrived not as short of breath, will have a PT OT evaluate the patient and further recommendation to follow, will continue present management for 1 more day reassess tomorrow and do the discharge planning. (2) Atrial flutter: Code(s): I48.92 - Unspecified atrial flutter Status: Acute Assessment and Plan: Patient is on metoprolol. Again cardiology input greatly be appreciated. The patient is not compliant with his medications and does not take them as directed. (3) History of hypercholesterolemia: Code(s): Z86.39 - Personal history of other endocrine, nutritional and metabolic disease Status: Chronic Assessment and Plan: Patient does not appear to be on anything for his cholesterol. We need to check a lipid profile (4) Hypertension: Code(s): I10 - Essential (primary) hypertension Status: Chronic Assessment and Plan: Patient is on metoprolol on Lasix. (5) Hypothyroidism: Code(s): E03.9 - Hypothyroidism, unspecified Status: Chronic Assessment and Plan: Patient stated he had a problem with his thyroid many years ago but is no longer on medication. (6) Non-compliant behavior: Code(s): R46.89 - Other symptoms and signs involving appearance and behavior Status: Acute Assessment and Plan: The patient has the history of obesity with obstructive sleep apnea and does not use a CPAP machine. (7) DM2 (diabetes mellitus, type 2): Code(s): E11.9 - Type 2 diabetes mellitus without complications Status: Acute Assessment and Plan: Patient tells me that he has borderline and does not take any medication however his blood sugars elevated tonight. Will do Accu-Cheks AC and HS and check A1c. (8) Depression: Code(s): F32.9 - Major depressive disorder, single episode, unspecified Status: Chronic Assessment and Plan: Patient denies being depressed and is Hyman suicide Scale was low. However the
--- NOTE | 2020-01-20 13:28 | PCRCNOTE ---
HOME O2 EVAL COMPLETE, 2L AT REST AND WITH ACTIVITY. SET UP WITH [employer] PHONE NUMBER [phone]. TANK DELIVERED TO ROOM BY SKIP [facility] [employer] REP
--- NOTE | 2020-01-20 13:30 | PC.NURSE ---
Discharge education given to patient. Patient seems reluctant to learn instructions about medication and oxygen requirements at home. All questions answered and education given to patient as needed. IV's have been removed. Patient has less than ideal living situations at home and I believe is stalling his discharge at this time. Will continue to education and answer questions for patient as needed.
== END 2020-01-20 14:20 | disposition home or self-care (01) | DRG 292 ==
LOC: ANHED 19:26 → ANHIMU 19:40 → ANH3MED 01-17 19:17
PROVIDERS: Nurse Practitioner; Admitting Provider Internal Medicine; Emergency Provider Emergency Medicine; Visit Provider Family Medicine
DX: I11.0 Hypertensive heart disease with heart failure (principal); I48.92 Unspecified atrial flutter; Z68.43 Body mass index [BMI] 50.0-59.9, adult; E66.01 Morbid (severe) obesity due to excess calories; I50.810 Right heart failure, unspecified; I35.0 Nonrheumatic aortic (valve) stenosis; E03.9 Hypothyroidism, unspecified; F32.9 Major depressive disorder, single episode, unspecified; E11.9 Type 2 diabetes mellitus without complications; G47.33 Obstructive sleep apnea (adult) (pediatric); Z28.21 Immunization not carried out because of patient refusal; Z86.39 Personal history of other endocrine, nutritional and metabolic disease; Z87.891 Personal history of nicotine dependence; Z88.0 Allergy status to penicillin; Z88.1 Allergy status to other antibiotic agents; Z91.14 Patient's other noncompliance with medication regimen; Z91.19 Patient's noncompliance with other medical treatment and regimen
CPT/HCPCS: 36415; 71046; 80048; 80053; 81001; 82728; 83036; 83605; 83615; 83735; 83880; 84443; 85025; 85027; 85610; 85730; 86140; 93005; 93970; 94618; 96372; 96374; 96375; 96376; 97110; 97116; 97162; 97165; 97530; 99285; A9270; C8929; G0378; J1650; J1940; Q9957